=== PATIENT | female | born 1940 | race Caucasian/White ===

== ENCOUNTER 2019-08-12 09:47 | Emergency (ER) | payer MEDICARE ==
[2019-08-12] MEDS ORDERED: BISACODYL 10 MG SUPP.RECT RC ONE ×3 (10:23→13:11)
[2019-08-12] MEDS ORDERED: SODIUM CHLORIDE 0.9% 1000ML 1,000 ML IV ONE (10:24)
[2019-08-12 10:31] LABS: BASOPHILS % (AUTO) 0.7 % (0.0-5.0); EOSINOPHILS % (AUTO) 1.2 % (0.0-8.0); HEMATOCRIT 30.3 % (36-48); LYMPHOCYTES % (AUTO) 8.2 % (21.0-51.0); MEAN CORPUSCULAR HEMOGLOBIN 31.1 pg (27.0-33.0); MEAN CORPUSCULAR HGB CONC 32.7 g/dL (32.0-36.0); MEAN CORPUSCULAR VOLUME 95.3 fL (79-99); MONOCYTES % (AUTO) 7.9 % (3.0-13.0); NEUTROPHILS % (AUTO) 81.5 % (40.0-77.0); PLATELET COUNT (AUTO) 381 K/uL (130-400); RED BLOOD CELL COUNT(AUTO) 3.18 MIL/uL (4.00-5.50); RED CELL DISTRIBUTION WIDTH 13.2 % (11.0-15.5); WHITE BLOOD COUNT (AUTO) 7.3 K/uL (4.8-10.8)
[2019-08-12 10:42] LABS: CREATININE 0.7 mg/dL (0.5-1.5); POTASSIUM 3.2 mmol/L (3.5-5.1)
[2019-08-12 10:46] LABS: ALBUMIN 3.2 g/dL (3.5-5.0); BILIRUBIN,TOTAL 0.5 mg/dL (0.2-1.0); TOTAL PROTEIN, SERUM 6.8 g/dL (6.0-8.3)
== END 2019-08-12 15:05 | disposition home or self-care (01) ==
LOC: EDH 09:47
DX: K59.00 Constipation, unspecified (principal); J45.909 Unspecified asthma, uncomplicated; I10 Essential (primary) hypertension; Z88.6 Allergy status to analgesic agent; Z90.710 Acquired absence of both cervix and uterus; Z98.890 Other specified postprocedural states
CPT/HCPCS: 36415; 74018; 80053; 82150; 83690; 85025; 99284; J7030

== ENCOUNTER → 2024-05-13 | Outpatient (CLI) | payer MEDICARE ==
--- NOTE | 2024-05-13 20:45 | HMCSR ---
APPROVED REPORT EXAM: Two-dimensional and M-mode echocardiogram with Doppler and color Doppler. 2D Dimensions RVDd3.9 cmLVEF(%)61.4 (>50%)LVED Vol(simp.)68.6 mL IVSd0.7 (0.7-1.1cm)FS(%)33 %LVES Vol(simp.)30.2 mL LVDd4.0 (3.8-5.6cm)LA (2D)3.9 (1.6-4.0cm)LVEF(%, simp.)56 % PWd0.6 (0.7-1.1cm)Ao Root(2D)2.9 (2.0-3.7cm)LA ESV INDEX (4CH)41.00 mL/m2 IVSs0.9 cmLVOT diam1.6 (1.8-2.4cm)LA ESV INDEX (2CH)32.50 mL/m2 LVDs2.7 (2.5-4.0cm)LA ESV INDEX (BP)39.70 mL/m2 PWs1.2 cm M-Mode Dimensions EPSS0.5 cm LA (MM)3.8 (1.6-4.0cm) Ao Root(MM)2.5 (2.0-3.7cm) Aortic Valve AoV VTI0.4 mAo Mean GR5.0 mmHgLVOT VTI0.21 m RONAL (VMAX)1.2 cm2Al P1/2T550 msAVA (VTI) 1.2 cm2 Mitral Valve MV E Vmax98.0 cm/sDECEL Ikwz253 ms MV A Vmax28.1 cm/sP 1/2 T67 ms E/A ratio3.5MVA (PHT)3.3 cm2 MR Max PG50 mmHg TDI E/E' Ghkzsk60.2E/E' Xkiwcyz76.4 Medial E' Peak V5.10 cm/sLateral E' Peak V9.40 cm/s Tricuspid Valve TR Vmax3.1 m/s TR Peak GR37.6 mmHg Left Ventricle The left ventricle is normal size. There is normal LV segmental wall motion. There is normal left kenton tricular wall thickness. LVEF is 55%. Stage III diastolic dysfunction. Right Ventricle The right ventricle is normal size. The right ventricular systolic function is normal. Atria The left atrium size is mildly dilated. The right atrium size is normal. Aortic Valve The aortic valve is normal in structure. Mild aortic regurgitation. There is no aortic valvular steno sis. Mitral Valve The mitral valve is normal in structure. There is trace mitral regurgitation. There is no mitral valv e stenosis. Tricuspid Valve The tricuspid valve is normal in structure. There is moderate tricuspid valve regurgitation noted. Mi ld Pulmonary Hypertension. Pulmonic Valve The pulmonary valve is normal in structure. There is mild pulmonic valvular regurgitation. Great Vessels The aortic root is normal in size. The IVC is normal in size and collapses <50% with inspiration. Pericardium There is no pericardial effusion. Pericardium is thickened. Conclusion LVEF is 55%. Stage III diastolic dysfunction. The left atrium size is mildly dilated. Mild aortic regurgitation. There is trace mitral regurgitation. Mild Pulmonary Hypertension. There is no pericardial effusion. Pericardium is thickened.
== END | disposition home or self-care (01) ==
LOC: RAH 13:50
PROVIDERS: ATTEND Internal Medicine Cardiovascular Disease
DX: I08.8 Other rheumatic multiple valve diseases (principal); I11.9 Hypertensive heart disease without heart failure; I27.20 Pulmonary hypertension, unspecified
CPT/HCPCS: 93306

== ENCOUNTER 2024-07-19 13:41 | Inpatient (IN) | payer MEDICARE ==
[~2024-07-19] VITALS: Ht 160 cm; Wt 62.1 kg
[2024-07-19 14:20] LABS: BASOPHILS # (AUTO) 0.06 K/uL (0.00-0.20); BASOPHILS % (AUTO) 1.1 % (0.0-5.0); EOSINOPHILS # (AUTO) 0.21 K/uL (0.00-0.70); EOSINOPHILS % (AUTO) 3.8 % (0.0-8.0); HEMATOCRIT 42.5 % (36-48); IMMATURE GRANULOCYTE ABSOLUTE 0.01 K/uL (0-1); LYMPHOCYTES # (AUTO) 1.2 K/uL (1.0-4.8); LYMPHOCYTES % (AUTO) 21.2 % (21.0-51.0); MEAN CORPUSCULAR HEMOGLOBIN 31.4 pg (27.0-33.0); MEAN CORPUSCULAR HGB CONC 32.9 g/dL (32.0-36.0); MEAN CORPUSCULAR VOLUME 95.3 fL (79-99); MONOCYTES # (AUTO) 0.5 K/uL (0.1-1.0); MONOCYTES % (AUTO) 8.6 % (3.0-13.0); NEUTROPHILS # (AUTO) 3.6 K/uL (1.8-7.7); NEUTROPHILS % (AUTO) 65.1 % (40.0-77.0); PLATELET COUNT (AUTO) 190 K/uL (130-400); RED BLOOD CELL COUNT(AUTO) 4.46 MIL/uL (4.00-5.50); RED CELL DISTRIBUTION WIDTH 12.9 % (11.0-15.5); WHITE BLOOD COUNT (AUTO) 5.6 K/uL (4.8-10.8)
[2024-07-19 14:28] LABS: CREATININE 0.7 mg/dL (0.5-1.0); POTASSIUM 3.4 mmol/L (3.5-5.1)
--- NOTE | 2024-07-19 15:05 | HMCIMG ---
CHEST 1VW HISTORY: Weakness COMPARISON: None FINDINGS: A frontal projection of the chest was obtained. Prominent interstitial markings are seen with possible superimposed infiltrates. The heart is borderline enlarged. Degenerative changes are seen. No evidence of aortic calcification is seen. IMPRESSION: 1. Prominent interstitial markings are seen with possible superimposed infiltrates.
[2024-07-19] MEDS: hydrALAZine 20MG/ML VIAL IV ONE (15:54)
--- NOTE | 2024-07-19 16:13 | HMCIMG ---
CT HEAD/BRAIN W/O CONTRAST HISTORY: Headaches COMPARISON: None TECHNIQUE: Multiple sequential axial images of the head were obtained from the base of the skull through vertex. Patient was not given contrast through intravenous route. FINDINGS: The ventricles and extraventricular CSF spaces are dilated consistent with cerebral atrophy. Nonspecific white matter changes seen. There is no midline shift, mass effect or herniation. No acute intracranial bleed is seen. Visualized portion of the paranasal sinuses are grossly within normal limits. IMPRESSION: 1. No acute intracranial bleed is seen. 2. Atrophy with white matter changes. CT was performed with one or more following dose reduction techniques: automated exposure control, adjustment of the mA and kv according to patient's size, or use of a iterative reconstruction technique.
--- NOTE | 2024-07-19 17:10 | NUR ---
[facility] WAS CALLED AT THIS TIME FOR TRANSPORT
--- NOTE | 2024-07-19 18:12 | ERN ---
General Chief Complaint: Hypertension Stated Complaint: HEADACHE, HIGH BP, BLURRY VISION Time Seen by MD: 13:41 History of Present Illness Initial Comments 83-year-old female presents for deviating his episode, headache, and I made a special elevated blood pressure. Patient reports that this morning she woke up and she felt bad although she could not go words to her. She reports she had possibly some brief blurry vision. She reports that she had a bit of a headache. She feels dizzy. She reports that sugar blood pressure at home and it was elevated. She was never had this before. Denies any falls. Denies any chest pain shortness of breath. Allergies: Coded Allergies: codeine (Unverified Allergy, Unknown, 07/19/24) Past Medical History Past Medical History: A-Fib, Asthma, Heart Disease Past Surgical History: Appendectomy, Hysterectomy Surgical History Other: KNEE ROS Dictation CONSTITUTIONAL: No chills, no fever, no weakness, no diaphoresis, no malaise. HEAD/FACE: No signs of trauma. EENT: No eye pain, no blurred vision, no tearing, no double vision, no ear pain, no ear discharge, no nose pain, no nasal congestion, no throat pain, no throat swelling, no mouth pain. RESPIRATORY: No cough, no orthopnea, no SOB, no stridor, no wheezing. CARDIOVASCULAR: No chest pain, no edema, no palpitations, no syncope. GASTROINTESTINAL/ABDOMINAL: No abdominal pain, no constipation, no diarrhea, no nausea, no vomiting. GENITOURINARY: No abnormal discharge, no dysuria, no frequent urination, no hematuria. No complaints of pain in the genitals. MUSCULOSKELETAL: No back pain, no gout, no joint pain, no joint swelling, no muscle pain, no muscle stiffness, no neck pain. INTEGUMENTARY: No change in color, no change in hair/nails, no dryness, no lesion, no lumps, no rash. NEUROLOGICAL/PSYCH: Headache and dizziness HEMATOLOGIC/LYMPHATIC: Not anemic, no history of blood clots, no apparent bleeding, no bruising, glands not swollen. All Systems Negative, Except as Noted. Physical Exam Physical Exam Dictation VITAL SIGNS: Reviewed. GENERAL APPEARANCE: Alert, oriented x3, no acute distress HEAD AND FACE: Non-traumatic. EYES: PERRL, pink conjunctivas, eyelid no trauma, anterior chamber clear. EARS: Pinnas intact and no signs of trauma or erythema. Ear canals clear and no discharge. TMs no erythema. NOSE: No discharge, no bleeding. OROPHARYNX: Mouth normal, teeth no caries, tongue pink. Pharynx clear, no erythema. Tonsils no exudates, no abscesses noted. Mucous membrane moist. NECK: Supple, non-tender, no thyromegaly, no masses, no JVD, no bruits. BREAST: Deferred. CHEST: No tenderness, no crepitus, no paradoxical movement, no retractions. LUNGS: Clear, well-ventilated, symmetric, no rales, no wheezing, no rhonchi, no stridor, good breath sounds bilaterally. HEART: Regular rate, regular rhythm, no murmur, no gallops. VASCULAR: No peripheral edema. ABDOMEN: Soft, positive bowel sounds, nondistended, no guarding, nontender, no rebound, no masses no hepatomegaly, no splenomegaly, no Ricks's sign, no hernias. RECTAL: Deferred. GENITAL: Deferred. NEUROLOGICAL: Normal speech, gross motor function intact, gross sensory function intact. MUSCULOSKELETAL: Neck nontender, full range of motion, back nontender, full range of motion. EXTREMITIES: Nontender, full range of motion. SKIN: Color pink, dry, no turgor, no rash, no lacerations, no abrasions, no contusions. LYMPHATICS: Deferred. Results Laboratory and Microbiology Lab and Micro Result Laboratory Tests Test 07/19/24 14:05 White Blood Count 5.6 K/uL (4.8-10.8) Red Blood Count 4.46 MIL/uL (4.00-5.50) Hemoglobin 14.0 g/dL (12.0-16.0) Hematocrit 42.5 % (36-48) Mean Corpuscular Volume 95.3 fL (79-99) Mean Corpuscular Hemoglobin 31.4 pg (27.0-33.0) Mean Corpuscular Hemoglobin Concent 32.9 g/dL (32.0-36.0) Red Cell Distribution Width 12.9 % (11.0-15.5) Platelet Count 190 K/uL (130-400) Mean Platelet Volume 10.9 fL (7.5-10.5) H Immature Granulocyte % (Auto) 0.2 % (0-1) Neutrophils (%) (Auto) 65.1 % (40.0-77.0) Lymphocytes (%) (Auto) 21.2 % (21.0-51.0) Monocytes (%) (Auto) 8.6 % (3.0-13.0) Eosinophils (%) (Auto) 3.8 % (0.0-8.0) Basophils (%) (Auto) 1.1 % (0.0-5.0) Neutrophils # (Auto) 3.6 K/uL (1.8-7.7) Lymphocytes # (Auto) 1.2 K/uL (1.0-4.8) Monocytes # (Auto) 0.5 K/uL (0.1-1.0) Eosinophils # (Auto) 0.21 K/uL (0.00-0.70) Basophils # (Auto) 0.06 K/uL (0.00-0.20) Absolute Immature Granulocyte (auto 0.01 K/uL (0-1) Nucleated Red Blood Cells 0.0 % (0.0-0.19) Sodium Level 136 mmol/L (136-145) Potassium Level 3.4 mmol/L (3.5-5.1) L Chloride Level 97 mmol/L (101-111) L Carbon Dioxide Level 38 mmol/L (21-32) H Blood Urea Nitrogen 13 mg/dL (7-18) Creatinine 0.7 mg/dL (0.5-1.0) Glomerular Filtration Rate Calc 85 mL/min (>90) Random Glucose 93 mg/dL (70-105) Total Calcium 10.2 mg/dL (8.5-10.1) H Troponin I High Sensitivity 13 ng/L (4-50) MDM CC: Headache, elevated blood pressure, dizziness Historian: Patient Comorbidities: Advanced age, AFib, heart disease, asthma, hypertension Limitations by social determinants of health: None Vital signs: Initially 194/92, otherwise vital signs stable remained stable in the ER. Differential diagnosis: Stroke, hypertension urgency, ACS, trauma, or brain bleed, other than edit EKG: atrial fibrillation, rate of 58, LBBB: Left axis deviation, good R-wave progression. No STEMI. Independently interpreted by me. Labs (independently ordered and interpreted by me ): CBC is normal. BMP shows mildly elevated carbon dioxide otherwise unremarkable. Troponin is normal. Mentally ordered and interpreted by me): No acute bleeding. CXR ( independently interpreted by me ): No cardiomegaly pleural effusions or focal infiltrates. Treatment in ED: 20 mg IV hydralazine Reassessment: NIHSS of 0 cranial nerves are intact, blood pressure is improved 140/90, but patient is still feels dizziness and "bad". This point in time it is unclear what is causing your symptoms, we will admit for observation for possible hypertensive urgency. Consultation: Hospitalist for admission ED Course Orders Procedure Category Date Status Time 12 Lead Ekg Tracing- EKG 07/19/24 Logged Technical 13:56 Chest 1vw RAD 07/19/24 Resulted 13:56 Cbc With Differential LAB 07/19/24 Complete 13:56 Basic Metabolic Panel LAB 07/19/24 Complete 13:56 Troponin I High LAB 07/19/24 Complete Sensitivity 13:56 Urinalysis Profile LAB 07/19/24 Logged 13:56 Hydralazine 20mg Inj PHA 07/19/24 Complete (Apresoline 20mg In 15:30 Ct Head/Brain W/O CT 07/19/24 Resulted Contrast 15:15 12 Lead Ekg Tracing- EKG 07/19/24 Logged Technical 15:15 Current Medications Medications (Trade) Dose Ordered Sig/Jane Route PRN Reason Start Time Stop Time Status Last Admin Dose Admin Hydralazine HCl (APRESOLine 20MG INJ) 20 mg ONCE ONCE IV 07/19/24 15:30 07/19/24 15:31 DC 07/19/24 15:54 Vital Signs Date Time Temp Pulse Resp B/P (MAP) Pulse Ox O2 Delivery O2 Flow Rate FiO2 07/19/24 17:55 98.4 68 18 128/63 99 Room Air* 0 07/19/24 16:58 98.4 83 18 135/59 99 Room Air* 0 07/19/24 16:32 98.4 88 18 151/87 99 Room Air* 0 07/19/24 16:01 98.4 57 18 192/76 99 Room Air* 0 07/19/24 15:27 98.4 57 18 159/73 99 Room Air* 0 07/19/24 14:57 57 18 182/82 95 Room Air* 0 07/19/24 13:51 98.4 62 16 194/92 99 Room Air 0 DX & DISP Disposition: Inpatient Departure Impression: Primary Impression: Hypertensive urgency Additional Impression: Atrial fibrillation Condition: Stable Referrals: ANI GONZALEZ (PCP) ANGELO DORSEY DO Jul 19, 2024 18:12
--- NOTE | 2024-07-19 19:08 | HP ---
History of Present Illness Reason for Visit: headache History of Present Illness Ms. Fenton is an 83-year-old female that was seen and examined today on 07/19/2024. Patient is a good historian of personal health Patient states that she came to the emergency department with a chief complaint of headache. Onset was today at 1:00 p.m.. Location is to head. Duration is on and off. Episodes lasted about 1 hour. Character is described as, "like if my eyes get buggy."Patient reports a similar episode last year that required Cardiology evaluation but she can not recall what the cause was. There was no alleviating factors. Symptoms seemingly alleviated on their own. There was no associated chest pain or shortness and breath. Today in the emergency department CBC unremarkable, potassium 3.4, no urinalysis has been collected or sent to lab. Chest x-ray shows prominent interstitial markings with possible superimposed infiltrates. CT of the head is unremarkable other than atrophy with white matter changes. Patient had a episode of elevated blood pressure in the emergency department systolic 100 and 80s mm of mercury which responded well to a dose of hydralazine. Emergency room physician recommended that patient be admitted with a diagnosis of hypertensive urgency. Past Medical History ADDITIONAL PAST MEDICAL HISTORY: [Hypertension, asthma] SOCIAL HISTORY: [Negative for smoking. Patient drinks alcohol about once a month usually one beer. Patient denies drug use. Patient lives with the Rhea Puente. Patient has good access to health care through her insurance. Patient denies difficulty paying her bills. 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 Dyspnea, Edema, Lt Headedness, Other Gastrointestinal: No: Nausea, Vomiting, Abdominal Pain, Diarrhea, Constipation, Melena, Hematochezia, Other Genitourinary: No Dysuria, No Frequency, No Incontinence, No Hematuria, No Retention, No Other Musculoskeletal: No: other, neck pain, shoulder pain, arm pain, back pain, hand pain, leg pain, foot pain Skin: No Urticaria, No Rash, No Other Neurological: Other (Positive cephalgia); No: Weakness, Numbness, Incoordination, Change in speech, Confusion, Seizures Allergies: Coded Allergies: codeine (Unverified Allergy, Unknown, 07/19/24) Exam Vital Signs Vital Signs Date Time Temp Pulse Resp B/P (MAP) Pulse Ox O2 Delivery O2 Flow Rate FiO2 07/19/24 17:55 98.4 68 18 128/63 99 Room Air* 0 21 General Appearance: Alert, Oriented X3, Cooperative, No acute distress HEENT: Atraumatic, EOMI Respiratory: Clear to auscultation, Normal air movement, NL respiratory effort Cardiovascular: Regular rate, Regular rhythm, Normal S1, Normal S2 Abdominal: Normal bowel sounds, Soft, No tenderness Extremities: No edema Skin: No significant lesion Neuro: Normal speech, Strength at 5/5 X4 ext, Sensation intact, Cranial nerves 3-12 NL Psych/Mental Status: Mental status NL, Mood NL, Thoughts/Content NL Assessment/Plan ASSESSMENT: [ Hypertensive urgency, POA Hypokalemia, POA Suspected pneumonia, POA Asthma] PLAN: [ Admit patient to medical floor as inpatient status. Place patient on telemetry monitoring. Hypertensive urgency: Monitor patient's vital signs. Hydralazine 10 mg IV every 4 hours for systolic blood pressure greater than 160 mmHg Consider resuming home medications once they are reconciled Hypokalemia: Replace potassium per hospital protocol. Suspected pneumonia: Check respiratory culture, follow up with the results. Start empiric antibiotic therapy with doxycycline and Rocephin. Supportive treatment with guaifenesin, Tylenol DuoNebs every 6 hours Supplemental oxygen to maintain O2 saturation greater 92%. GI prophylaxis, famotidine DVT prophylaxis, Lovenox ADVANCED CARE PLANNING 1. Which of the following were discussed? Hospice Care - Yes Therapeutic options - Yes Advance Directives - Yes- patient states that she does not have any advance directives in place at this time however her can make decisions for her if she becomes unable. Other discussions - patient wishes to remain a full code at this time 2. Discussed with who? Patient 3. Voluntary nature of this service was explained to the patient? Yes 4. Amount of time spent - ___ 16 minutes ____ 5. Reviewed by Physician? (if this service was performed by NPP) Yes This document was generated in part using voice recognition software, occasional wrong word or sound alike substitutions may have occurred due to the inherent limitations of voice recognition software. Read the chart carefully and recognize using context, where the substitutions have occurred. Although every effort was made to edit the content, bakery demonstrator and typing errors may occur ATTESTATION BY PHYSICIAN I have seen and examined the patient. I reviewed the documentation, medical decision making, and treatment plan as noted by the mid-level provider above. I agree with the findings and plan of care. RAMBO DIXON [facility] Jul 19, 2024 19:08
[2024-07-19 19:20] LABS: APPEARANCE,URINE CLEAR (CLEAR); BILIRUBIN,URINE NEGATIVE (NEGATIVE); COLOR,URINE COLORLESS (YELLOW); GLUCOSE, URINE (UA) NEGATIVE (NEGATIVE); KETONES,URINE NEGATIVE (NEGATIVE); LEUKOCYTE ESTERASE ,URINE 250 Leu/uL (NEGATIVE); NITRATE,URINE NEGATIVE (NEGATIVE); OCCULT BLOOD,URINE NEGATIVE (NEGATIVE); PROTEIN,URINE NEGATIVE (NEGATIVE); UROBILINOGEN,URINE 0.2 mg/dL (0.2-1.0)
[2024-07-19 19:24] LABS: ADD UA MICROSCOPIC YES
[2024-07-19 19:28] LABS: BACTERIA,URINE RARE /HPF (None Seen); RBC,URINE 0-1 /HPF (0-1); SQUAMOUS EPITHELIAL CELL,UR RARE /HPF (0-2)
[2024-07-19] MEDS ORDERED: MAGNESIUM 2GM PREMIX 50ML 50 ML IV PRN (19:30)
[2024-07-19] MEDS ORDERED: PoTASSium chloRIDE 20MEQ/100ML 100 ML IV PRN (19:30)
[2024-07-19] MEDS ORDERED: hydrALAZine 20MG/ML VIAL IV PRN (19:30)
[2024-07-19] MEDS ORDERED: guaiFENesin SUGAR-FREE 100 MG/5 ML UDCUP PO PRN (19:30)
[2024-07-19] MEDS ORDERED: ondanSETRON 4MG INJ IV PRN (19:30)
[2024-07-19 19:59] LABS: SARS-CoV-2, RNA, NAAT NEGATIVE SARS CoV-2 (NEGATIVE)
[2024-07-19 20:03] LABS: INFLUENZA TYPE A Negative For Type A (NEGATIVE); INFLUENZA TYPE B Negative For Type B (NEGATIVE)
[2024-07-19 20:10] VITALS: PULSE 70; RESP 18; O2SAT 97
[2024-07-19] MEDS: cefTRIAXone 1G VIAL IVPB SCH (20:36)
[2024-07-19] MEDS: DOXYCYCLINE 100MG+NS 250ML 250 ML IV SCH (20:36)
[2024-07-19] MEDS: acetaMINOPHEN 325 MG TAB PO PRN (23:01)
[2024-07-19] MEDS: IpraTROPium/alBUTERol SULFATE 3 ML SOLUTION IH SCH (23:19)
[2024-07-19] MEDS: SODIUM CHLORIDE 3% FOR INHALATION 4 ML/AMP VIAL.NEB IH ONE (23:19)
[2024-07-19 23:21] VITALS: PULSE 62; RESP 17
[2024-07-19] MEDS: IpraTROPium/alBUTERol SULFATE 3 ML SOLUTION IH ONE (23:21)
--- NOTE | 2024-07-20 06:35 | EKG ---
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
--- NOTE | 2024-07-20 06:35 | EKG ---
[facility] Test Date: 2024-07-19 Test Time: 17:00:18 Pat Name: DUANE MEJIA Department: ED[facility]IP Room: 302 Gender: F Health Care Coordinator: [id number] : 1940 Requested By: ANGELO DORSEY Order Number: [id number] Reading MD: Reginald Qiu Measurements Intervals [place] Rate: 79 P: 58 AL: 149 QRS: 56 QRSD: 86 T: 37 QT: 412 QTc: 473 Interpretive Statements Sinus rhythm Abnormal T, consider ischemia, anterior leads Compared to ECG 07/19/2024 13:56:44 T-wave abnormality now present Possible ischemia now present Atrial fibrillation no longer present Intraventricular conduction delay no longer present Left ventricular hypertrophy no longer present Early repolarization no longer present Electronically Signed On 07-21-2024 12:44:10 INSPECTION CLERK by Reginald Qiu Please click the below link to view image of tracing.
[2024-07-20 07:09] VITALS: PULSE 77; RESP 18
[2024-07-20 07:41] LABS: BASOPHILS # (AUTO) 0.05 K/uL (0.00-0.20); BASOPHILS % (AUTO) 0.9 % (0.0-5.0); EOSINOPHILS # (AUTO) 0.15 K/uL (0.00-0.70); EOSINOPHILS % (AUTO) 2.8 % (0.0-8.0); HEMATOCRIT 40.8 % (36-48); IMMATURE GRANULOCYTE ABSOLUTE 0.01 K/uL (0-1); LYMPHOCYTES # (AUTO) 1.1 K/uL (1.0-4.8); LYMPHOCYTES % (AUTO) 20.3 % (21.0-51.0); MEAN CORPUSCULAR HGB CONC 32.8 g/dL (32.0-36.0); MEAN CORPUSCULAR VOLUME 94.4 fL (79-99); MONOCYTES # (AUTO) 0.5 K/uL (0.1-1.0); MONOCYTES % (AUTO) 9.2 % (3.0-13.0); NEUTROPHILS # (AUTO) 3.5 K/uL (1.8-7.7); NEUTROPHILS % (AUTO) 66.6 % (40.0-77.0); PLATELET COUNT (AUTO) 178 K/uL (130-400); RED BLOOD CELL COUNT(AUTO) 4.32 MIL/uL (4.00-5.50); RED CELL DISTRIBUTION WIDTH 13.2 % (11.0-15.5); WHITE BLOOD COUNT (AUTO) 5.3 K/uL (4.8-10.8)
[2024-07-20] MEDS: SODIUM CHLORIDE 3% FOR INHALATION 4 ML/AMP VIAL.NEB IH ONE (07:43)
--- NOTE | 2024-07-20 07:45 | NUR ---
ASSESSMENT: PT FOUND AWAKE AND ALERT. NO ACUTE DISTRESS NOTED NOR VERBALIZED BY PT. HEAD OF STRETCHER IN SEMI FOWLERS POSITION, SR UP X 1 AND BED LOW/LOCKED. CARDIO/PULMONARY: IRREGULAR CARDIAC RHYTHM AUSCULTATED APICALLY. 2+ PULSES TO BILATERAL RADIAL/DORSALIS PEDAL SITES. PT CURRENTLY DENIES CHEST PAIN. 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 NO CYANOSIS NOTED TO NAIL BEDS. LSCTA TO ALL LUCAS. DIMINISHED TO BASES BILATERALLY. CAP REFILL LESS THAN 3 SECONDS. NO USE OF ACCESSORY MUSCLES NOR STERNAL RETRACTIONS NOTED. OXYGEN SATS ON ROOM AIR 94-96%. 20G CATH TO R AC INTACT. NO S/S OF INFILTRATION. NEURO: PT A/O X 4. PT FOLLOWS BOTH SIMPLE AND COMPLEX COMMANDS. PT ASKS PERTINENT QUESTIONS ABOUT HER HEALTH. GCS 15. PT NEUROLOGICALLY INTACT AT THIS TIME. GI/: +BS X 4 QUADRANTS. ABD SOFT TO PALPATION. NO DISTENTION NOTED TO ABD NOR BLADDER. PT DENIES ANY BOWEL OR BLADDER ISSUES. MUSCULOSKELETAL: PT HAS FULL ROM OF ALL HER EXTREMITIES. DENIES ANY ACHES OR PAINS AT THIS TIME. PT SKIN INTACT, WARM TO TOUCH. NO SKIN BREAKDOWN NOTED NOR VERBALIZED BY PT.
[2024-07-20 08:00] LABS: CREATININE 0.7 mg/dL (0.5-1.0); MAGNESIUM 1.6 mg/dL (1.80-2.40); PHOSPHORUS 3.8 mg/dL (2.5-4.9); POTASSIUM 3.5 mmol/L (3.5-5.1)
[2024-07-20] MEDS: ENOXAPARIN SODIUM 40 MG/0.4 ML SYRINGE SQ SCH (09:57)
[2024-07-20] MEDS: FAMOTIDINE 20MG TAB PO SCH (09:57)
[2024-07-20] MEDS ORDERED: MONT-47 PO (10:22)
[2024-07-20] MEDS ORDERED: APIX5TAB PO (10:22)
[2024-07-20] MEDS ORDERED: CLON0.5T23 PO (10:22)
[2024-07-20] MEDS ORDERED: HYDR12.54 PO (10:22)
[2024-07-20] MEDS ORDERED: LOSA50TA64 PO (10:22)
--- NOTE | 2024-07-20 10:22 | NUR ---
MEDICATION RECONCILIATION: COMPLETE
--- NOTE | 2024-07-20 10:24 | NUR ---
HOSPITALIST CURRENTLY AT BEDSIDE W/PT.
[2024-07-20 11:07] VITALS: PULSE 75; RESP 18
--- NOTE | 2024-07-20 14:41 | NUR ---
PT OOB TO USE THE TOILET W/A STEADY GIAT. PT ALSO CHANGED INTO A HOSPITAL GOWN
--- NOTE | 2024-07-20 16:19 | NUR ---
SLEEP STUDY NOTE: ATTEMPTED TO CALL SLEEP STUDY BUT NO ANSWER AT THIS TIME.
--- NOTE | 2024-07-20 16:23 | PN ---
[facility] PROGRESS NOTE Date of Service: Jul 20, 2024 Time of Service: 16:10 SUBJECTIVE: Ms. Fenton is an 83-year-old female that was seen and examined today on 07/19/2024. Patient is a good historian of personal health Patient states that she came to the emergency department with a chief complaint of headache. Onset was today at 1:00 p.m.. Location is to head. Duration is on and off. Episodes lasted about 1 hour. Character is described as, "like if my eyes get buggy."Patient reports a similar episode last year that required Cardiology evaluation but she can not recall what the cause was. There was no alleviating factors. Symptoms seemingly alleviated on their own. There was no associated chest pain or shortness and breath. Today in the emergency department CBC unremarkable, potassium 3.4, no urinalysis has been collected or sent to lab. Chest x-ray shows prominent interstitial markings with possible superimposed infiltrates. CT of the head is unremarkable other than atrophy with white matter changes. Patient had a episode of elevated blood pressure in the emergency department systolic 100 and 80s mm of mercury which responded well to a dose of hydralazine. Emergency room physician recommended that patient be admitted with a diagnosis of hypertensive urgency 07/20/2024 - patient is seen at bedside in room ED 12 , patient feels better compared to yesterday but has mild headache which comes on and off and little visual disturbance which improved compared to yesterday. Patient's home medications for blood pressure has been resumed and will be monitored for 24 hours to see the blood pressure control. Questioned patient about any external stressors, dietary changes, nonadherence to medications and patient answered that there are no changes in her daily life, she also added that she measures her blood pressure at home in the morning and at night and it has always been in 120s and 80s. Patient's labs show WBC 5.3, hemoglobin 13.4 And chemistries show sodium 138, potassium 3.5, creatinine 0.7, BUN 11, magnesium 1.6. Patient has a symptomatic bacteriuria which do not require antibiotics. Patient is hemodynamically stable with temperature 99, pulse 75, respiratory rate 18, blood pressure 139/59, saturating at 97% on room air. Patient will be monitored closely REVIEW OF SYSTEMS CONSTITUTIONAL: Denies fevers, chills, or night sweats. No unintentional weight loss reported. NEUROLOGICAL: Denies headache, amaurosis fugax, motor weakness, sensory deficit, vertigo/spinning sensation, gait abnormalities, or tremors. ENT: No hearing loss, otalgia, otorrhea, rhinitis, rhinorrhea, hoarseness, or sore throat. CARDIOVASCULAR: Denies any exertional angina, dyspnea on exertion, orthopnea, paroxysmal nocturnal dyspnea, palpitations, life-threatening arrhythmias, claudication. PULMONARY: Denies any shortness of breath, cough, phlegm/sputum, hemoptysis, pleuritic chest pain. SLEEP: Denies morning headaches, daytime somnolence or napping. Denies d ifficulty falling asleep, staying asleep, waking from sleep. Denies knowledge of snoring. GASTROINTESTINAL: Denies any type of dysphagia to either liquids or solids. Denies nausea, vomiting, pyrosis, early satiety, abdominal pain, diarrhea, constipation, or changes in stool consistency or caliber. Denies coffee-ground emesis, hematemesis, hematochezia, or melanotic stools. GENITOURINARY: Denies frequency, urgency, nocturia, hematuria or incontinence (Storage/Irritative symptoms.) Low urinary stream, straining to void, urinary intermittency or hesitancy, splitting of the voiding stream, terminal dribbling. ENDOCRINOLOGIC: Denies polyuria, polydipsia, polyphagia or heat/cold intolerances. HEMATOLOGIC: Denies thrombophilia/previous clots, or coagulopathy/bleeding disorders. ONCOLOGIC: Denies personal history of malignancy. DERMATOLOGIC: Denies rashes or pruritus. PSYCHIATRIC: Denies any suicidal or homicidal ideation. Denies hallucinations. PHYSICAL EXAM GENERAL APPEARANCE: The patient is awake, alert, and oriented, in no acute cardiopulmonary distress. NEUROLOGICAL: Cranial nerves II-XII grossly intact. Motor is 5/5 in bilateral upper and lower extremities proximal to distal. No sensory deficits. HEENT: Face is symmetric. Pupils are equal and reactive. Extraocular movements are intact. NECK: Supple. No JVD. No thyromegaly. No submental, submandibular, pre- /postauricular, occipital or supraclavicular lymphadenopathy. CHEST: Normal chest expansion. No Telemetry. LUNGS: Absence of any rales, rhonchi or any wheezing. CARDIOVASCULAR: Regular. S1 and S2 normal. No appreciable rubs, murmurs or gallops. ABDOMEN: Soft, nontender, and nondistended. There is no rebound, voluntary guarding, or rigidity. : Deferred. No Sharp. EXTREMITIES: Non-edematous and not cyanotic. No clubbing. Good capillary refill. SKIN: No skin breakdown. Vital Signs (last 8hr) Date Time Temp Pulse Resp B/P (MAP) Pulse Ox O2 Delivery O2 Flow Rate FiO2 07/20/24 11:07 75 18 LABS: Laboratory: Test 07/20/24 07:22 07/19/24 19:25 07/19/24 19:10 07/19/24 14:05 Range/Units White Blood Count 5.3 4.8-10.8 K/uL Red Blood Count 4.32 4.00-5.50 MIL/uL Hemoglobin 13.4 12.0-16.0 g/dL Hematocrit 40.8 36-48 % Mean Corpuscular Volume 94.4 79-99 fL Mean Corpuscular Hemoglobin 31.0 27.0-33.0 pg Mean Corpuscular Hemoglobin Concent 32.8 32.0-36.0 g/dL Red Cell Distribution Width 13.2 11.0-15.5 % Platelet Count 178 130-400 K/uL Mean Platelet Volume 11.0 H 7.5-10.5 fL Immature Granulocyte % (Auto) 0.2 0-1 % Neutrophils (%) (Auto) 66.6 40.0-77.0 % Lymphocytes (%) (Auto) 20.3 L 21.0-51.0 % Monocytes (%) (Auto) 9.2 3.0-13.0 % Eosinophils (%) (Auto) 2.8 0.0-8.0 % Basophils (%) (Auto) 0.9 0.0-5.0 % Neutrophils # (Auto) 3.5 1.8-7.7 K/uL Lymphocytes # (Auto) 1.1 1.0-4.8 K/uL Monocytes # (Auto) 0.5 0.1-1.0 K/uL Eosinophils # (Auto) 0.15 0.00-0.70 K/uL Basophils # (Auto) 0.05 0.00-0.20 K/uL Absolute Immature Granulocyte (auto 0.01 0-1 K/uL Nucleated Red Blood Cells 0.0 0.0-0.19 % Sodium Level 138 136-145 mmol/L Potassium Level 3.5 3.5-5.1 mmol/L Chloride Level 100 L 101-111 mmol/L Carbon Dioxide Level 33 H 21-32 mmol/L Blood Urea Nitrogen 11 7-18 mg/dL Creatinine 0.7 0.5-1.0 mg/dL Glomerular Filtration Rate Calc 85 >90 mL/min Random Glucose 91 70-105 mg/dL Total Calcium 9.5 8.5-10.1 mg/dL Phosphorus Level 3.8 2.5-4.9 mg/dL Magnesium Level 1.60 L 1.80-2.40 mg/dL Influenza Type A Antigen Negative For Type A NEGATIVE Influenza Type B Antigen Negative For Type B NEGATIVE SARS-CoV-2, RNA, NAAT NEGATIVE SARS CoV-2 NEGATIVE Urine Color COLORLESS YELLOW Urine Appearance CLEAR CLEAR Urine pH 8.0 5.0-8.0 Urine Specific [place] 1.005 1.001-1.031 Urine Protein NEGATIVE NEGATIVE mg/dL Urine Glucose (UA) NEGATIVE NEGATIVE mg/dL Urine Ketones NEGATIVE NEGATIVE mg/dL Urine Occult Blood NEGATIVE NEGATIVE Urine Nitrate NEGATIVE NEGATIVE Urine Bilirubin NEGATIVE NEGATIVE mg/dL Urine Urobilinogen 0.2 0.2-1.0 mg/dL Urine Leukocyte Esterase 250 H NEGATIVE Tuan/uL Urine RBC 0-1 0-1 /HPF Urine WBC 11-25 H 0-1 /HPF Urine Squamous Epithelial Cells RARE 0-2 /HPF Urine Bacteria RARE None Seen /HPF Troponin I High Sensitivity 13 4-50 ng/L Current Medications Medications (Trade) Dose Ordered Sig/Jane Route PRN Reason Start Time Stop Time Status Last Admin Dose Admin Acetaminophen (TYLenol 325MG TAB) 650 mg Q6H PRN PO TEMPERATURE GREATER THAN 101.5 07/19/24 19:30 08/18/24 19:29 07/19/24 23:01 650 MG Albuterol (DUOneb) 1 UDVIAL U4HERBE IH 07/20/24 00:00 08/19/24 00:00 07/20/24 11:07 1 UDVIAL Apixaban (EliquIS) 5 mg BID PO 07/20/24 21:00 08/19/24 20:59 Ceftriaxone Sodium (ROCEphine 1G INJ) 1 gm Q24H IVPB 07/19/24 19:30 07/29/24 19:29 07/19/24 20:36 1 GM Doxycycline Hyclate 250 ml @ 125 mls/hr Q12H IV 07/19/24 19:30 07/29/24 19:29 07/20/24 09:57 125 MLS/HR Enoxaparin Sodium (Lovenox) 40 mg DAILY SQ 07/20/24 09:00 07/20/24 11:57 DC 07/20/24 09:57 40 MG Famotidine (Pepcid 20mg Tab) 20 mg DAILY PO 07/20/24 09:00 08/19/24 08:59 07/20/24 09:57 20 MG Guaifenesin (RobiTUSSin SUGAR-FREE 100 MG/ 5 ML UDCUP) 400 mg Q4H PRN PO cough 07/19/24 19:30 08/18/24 19:29 Hydralazine HCl (APRESOLine 20MG INJ) 10 mg Q6H PRN IV For:SBP above 160;DBP above 90 07/19/24 19:30 08/18/24 19:29 Hydrochlorothiazide (hydroCHLOROthiazide 25MG) 12.5 mg BID PO 07/20/24 21:00 08/19/24 20:59 Losartan Potassium (CozAAR 50 mg TAB) 50 mg BID PO 07/20/24 21:00 08/19/24 20:59 Magnesium Sulfate 50 ml @ 0 mls/hr PROTOCOL PRN IV h 07/19/24 19:30 08/18/24 19:29 Ondansetron HCl (zoFRAN 4MG INJ) 4 mg Q6H PRN IV NAUSEA/VOMITING 07/19/24 19:30 08/18/24 19:29 Potassium Chloride 100 ml @ 100 mls/hr AD PRN IV POTASSIUM PROTOCOL 07/19/24 19:30 08/18/24 19:29 Potassium Chloride (K-Dur/Klor-Con 20meq) 20 meq AD PRN PO POTASSIUM PROTOCOL 07/19/24 19:30 08/18/24 19:29 Potassium Chloride (KCl 10% Elixir 20meq/15ml) 20 meq AD PRN PO POTASSIUM PROTOCOL 07/19/24 19:30 08/18/24 19:29 DIAGNOSTICS / RADIOLOGY: PATIENT: DUANE FENTON MR#: [id number] : 1940 SEX: F AGE: 83 LOCATION: [facility] ORDER 1357 STATUS: REG ER REPORT#: [id number] SERVICE 135 REASON: WEAKNESS ORDERING PHYSICIAN: ANGELO DORSEY DO PROCEDURE: CXR1VW - CHEST 1VW CHEST 1VW HISTORY: Weakness COMPARISON: None FINDINGS: A frontal projection of the chest was obtained. Prominent interstitial markings are seen with possible superimposed infiltrates. The heart is borderline enlarged. Degenerative changes are seen. No evidence of aortic calcification is seen. IMPRESSION: 1. Prominent interstitial markings are seen with possible superimposed infiltrates. DICTATED BY: FRANK ACUÑA MD DATE: 07/19/24 150 ELECTRONICALLY SIGNED BY: FRANK ACUÑA MD DATE: 07/19/241504 PATIENT: DUANE FENTON MR#: [id number] : 1940 SEX: F AGE: 83 LOCATION: ED ORDER 1516 STATUS: REG ER REPORT#: [id number] SERVICE 151 REASON: headache ORDERING PHYSICIAN: ANGELO DORSEY DO PROCEDURE: HEAD WO - CT HEAD/BRAIN W/O CONTRAST CT HEAD/BRAIN W/O CONTRAST HISTORY: Headaches COMPARISON: None TECHNIQUE: Multiple sequential axial images of the head were obtained from the base of the skull through vertex. Patient was not given contrast through intravenous route. FINDINGS: The ventricles and extraventricular CSF spaces are dilated consistent with cerebral atrophy. Nonspecific white matter changes seen. There is no midline shift, mass effect or herniation. No acute intracranial bleed is seen. Visualized portion of the paranasal sinuses are grossly within normal limits. IMPRESSION: 1. No acute intracranial bleed is seen. 2. Atrophy with white matter changes. CT was performed with one or more following dose reduction techniques: automated exposure control, adjustment of the mA and kv according to patient's size, or use of a iterative reconstruction technique. DICTATED BY: FRANK ACUÑA MD DATE: 07/19/24 1609 ELECTRONICALLY SIGNED BY: FRANK ACUÑA MD DATE: 07/19/24 3733 ASSESSMENT: [ Hypertensive urgency, POA Hypokalemia, POA Suspected pneumonia, POA Asthma POA Atrial fibrillation POA Insomnia POA Restless legs syndrome POA Hypertension POA Asymptomatic bacteriuria POA PLAN: [ Admit patient to medical floor as inpatient status. Place patient on telemetry monitoring. Hypertensive urgency:, hypertension Monitor patient's vital signs. Hydralazine 10 mg IV every 4 hours for systolic blood pressure greater than 160 mmHg Resume home medications losartan 50 b.i.d., hydrochlorothiazide 12.5 b.i.d. Hypokalemia: Replace potassium per hospital protocol. Insomnia, restless legs syndrome Patient takes clonazepam and the medication will be continued Atrial fibrillation Eliquis5 mg b.i.d. GI prophylaxis, famotidine DVT prophylaxis, Elliquis ATTESTATION BY PHYSICIAN I have seen and examined the patient. I reviewed the documentation, medical decision making, and treatment plan as noted by the resident provider above. I agree with the findings and plan of care. Jr Connor MD, KEERTI K MD Jul 20, 2024 16:23
--- NOTE | 2024-07-20 16:29 | NUR ---
DCP: HOME Pt and her Byrl [phone] are [place] and have a park model they stay in while in the [place]. Pt voiced independence with her ADLS, drives, uses no DM or HH services. PCP is Theresa Lazaro and uses [facility] for rx. Pt denies dc needs and states she will return home at co Addendum: 07/20/24 at 1632 by JOSÉ ANTONIO MENDEZ Amended: Links added.
[2024-07-20 18:57] VITALS: PULSE 67; RESP 18
[2024-07-20 18:58] VITALS: PULSE 67; RESP 18; O2SAT 98
--- NOTE | 2024-07-20 19:23 | NUR ---
REPORT ENDORSED TO LUCIE GRIER
[2024-07-20] MEDS: hydroCHLOROthiazide 25 MG TABLET PO SCH (21:12)
[2024-07-20] MEDS: APIXaban 5 MG TABLET PO SCH (21:12)
[2024-07-20] MEDS: LoSARTan 50 MG TABLET PO SCH (21:12)
[2024-07-20] MEDS: clonazePAM 0.5 MG TABLET PO SCH (21:12)
--- NOTE | 2024-07-20 22:59 | NUR ---
REPORT GIVEN TO GENEVA GRIER
[2024-07-20] MEDS: PoTASSium chl 10% ELIXIR 20MEQ 20 MEQ/15 ML UDCUP PO PRN (23:02)
[2024-07-20 23:10] VITALS: BP 142/74; PULSE 76; RESP 20; TEMP 97.5
--- NOTE | 2024-07-20 23:10 | NUR ---
PT BROUGHT TO UNIT VIA STRETCHER FROM ER ESCORTED BY HOSPITAL STAFF, PATIENT AAOX3. PT COOPERATIVE WITH ASSESSMENT, IV PATENT AND FLUSHED WELL, PATIENT VOICED NO CONCERNS AT THIS TIME.
[2024-07-20 23:12] VITALS: O2SAT 97
[2024-07-21 04:00] VITALS: BP 153/82; PULSE 70; RESP 20; TEMP 98.6
[2024-07-21 04:26] LABS: BASOPHILS # (AUTO) 0.07 K/uL (0.00-0.20); BASOPHILS % (AUTO) 1.2 % (0.0-5.0); EOSINOPHILS # (AUTO) 0.39 K/uL (0.00-0.70); EOSINOPHILS % (AUTO) 6.4 % (0.0-8.0); HEMATOCRIT 38.7 % (36-48); IMMATURE GRANULOCYTE ABSOLUTE 0.03 K/uL (0-1); LYMPHOCYTES % (AUTO) 16.8 % (21.0-51.0); MEAN CORPUSCULAR HEMOGLOBIN 31.5 pg (27.0-33.0); MEAN CORPUSCULAR HGB CONC 33.3 g/dL (32.0-36.0); MEAN CORPUSCULAR VOLUME 94.6 fL (79-99); MONOCYTES # (AUTO) 0.6 K/uL (0.1-1.0); NEUTROPHILS % (AUTO) 65.1 % (40.0-77.0); PLATELET COUNT (AUTO) 162 K/uL (130-400); RED BLOOD CELL COUNT(AUTO) 4.09 MIL/uL (4.00-5.50); RED CELL DISTRIBUTION WIDTH 13.3 % (11.0-15.5); WHITE BLOOD COUNT (AUTO) 6.1 K/uL (4.8-10.8)
[2024-07-21 04:37] LABS: CREATININE 0.6 mg/dL (0.5-1.0); POTASSIUM 3.3 mmol/L (3.5-5.1)
[2024-07-21] MEDS: PoTASSium chloRIDE 20MEQ ER 20 MEQ ERTAB PO PRN (05:44)
[2024-07-21 06:41] VITALS: PULSE 69; RESP 18
[2024-07-21 06:42] VITALS: PULSE 69; RESP 18; O2SAT 97
[2024-07-21 08:00] VITALS: BP 131/75; PULSE 71; RESP 18; TEMP 97.8; O2SAT 96
[2024-07-21] MEDS ORDERED: MAGNESIUM 4GM PREMIX 100ML IV SCH (09:30)
[2024-07-21 11:03] VITALS: PULSE 72; RESP 18
--- NOTE | 2024-07-21 11:06 | DS ---
Discharge Summary Hospital Course Summary: Ms. Fenton is an 83-year-old female that was seen and examined today on 07/19/2024. Patient is a good historian of personal health Patient states that she came to the emergency department with a chief complaint of headache. Onset was today at 1:00 p.m.. Location is to head. Duration is on and off. Episodes lasted about 1 hour. Character is described as, "like if my eyes get buggy."Patient reports a similar episode last year that required Cardiology evaluation but she can not recall what the cause was. There was no alleviating factors. Symptoms seemingly alleviated on their own. There was no associated chest pain or shortness and breath. Today in the emergency department CBC unremarkable, potassium 3.4, no urinalysis has been collected or sent to lab. Chest x-ray shows prominent interstitial markings with possible superimposed infiltrates. CT of the head is unremarkable other than atrophy with white matter changes. Patient had a episode of elevated blood pressure in the emergency department systolic 100 and 80s mm of mercury which responded well to a dose of hydralazine. Emergency room physician recommended that patient be admitted with a diagnosis of hypertensive urgency 07/20/2024 - patient is seen at bedside in room ED 12 , patient feels better compared to yesterday but has mild headache which comes on and off and little visual disturbance which improved compared to yesterday. Patient's home medications for blood pressure has been resumed and will be monitored for 24 hours to see the blood pressure control. Questioned patient about any external stressors, dietary changes, nonadherence to medications and patient answered that there are no changes in her daily life, she also added that she measures her blood pressure at home in the morning and at night and it has always been in 120s and 80s. Patient's labs show WBC 5.3, hemoglobin 13.4 And chemistries show sodium 138, potassium 3.5, creatinine 0.7, BUN 11, magnesium 1.6. Patient has a symptomatic bacteriuria which do not require antibiotics. Patient is hemodynamically stable with temperature 99, pulse 75, respiratory rate 18, blood pressure 139/59, saturating at 97% on room air. Patient will be monitored closely 07/21/2024- patient has been seen in room 302, patient expressed that she was free of headache but still little visual disturbance kind of foggy. Explained the patient about fluctuations in the blood pressure due to stress, diet, nonadherence to medication. Patient is deemed stable for discharge and will be continued on her current home medication. Also informed the patient that if she has any symptoms similar to this, she should come back to the emergency due to risk of having a stroke at that high blood pressure. Patient is advised to follow up with primary in 1-2 weeks and Cardiology in 2-3 weeks . Procedure(s): PATIENT: DUANE FENTON MR#: [id number] : 1940 SEX: F AGE: 83 LOCATION: [facility] ORDER 1357 STATUS: REG ER REPORT#: [id number] SERVICE 135 REASON: WEAKNESS ORDERING PHYSICIAN: ANGELO DORSEY DO PROCEDURE: CXR1VW - CHEST 1VW CHEST 1VW HISTORY: Weakness COMPARISON: None FINDINGS: A frontal projection of the chest was obtained. Prominent interstitial markings are seen with possible superimposed infiltrates. The heart is borderline enlarged. Degenerative changes are seen. No evidence of aortic calcification is seen. IMPRESSION: 1. Prominent interstitial markings are seen with possible superimposed infiltrates. DICTATED BY: FRANK ACUÑA MD DATE: 07/19/24 1502 ELECTRONICALLY SIGNED BY: FRANK ACUÑA MD DATE: 07/19/24 1505 PATIENT: DUANE FENTON MR#: [id number] : 1940 SEX: F AGE: 83 LOCATION: [facility] ORDER 1516 STATUS: REG ER REPORT#: [id number] SERVICE 1515 REASON: headache ORDERING PHYSICIAN: ANGELO DORSEY DO PROCEDURE: HEAD WO - CT HEAD/BRAIN W/O CONTRAST CT HEAD/BRAIN W/O CONTRAST HISTORY: Headaches COMPARISON: None TECHNIQUE: Multiple sequential axial images of the head were obtained from the base of the skull through vertex. Patient was not given contrast through intravenous route. FINDINGS: The ventricles and extraventricular CSF spaces are dilated consistent with cerebral atrophy. Nonspecific white matter changes seen. There is no midline shift, mass effect or herniation. No acute intracranial bleed is seen. Visualized portion of the paranasal sinuses are grossly within normal limits. IMPRESSION: 1. No acute intracranial bleed is seen. 2. Atrophy with white matter changes. CT was performed with one or more following dose reduction techniques: automated exposure control, adjustment of the mA and kv according to patient's size, or use of a iterative reconstruction technique. DICTATED BY: FRANK ACUÑA MD DATE: 07/19/24 160 ELECTRONICALLY SIGNED BY: FRANK ACUÑA MD DATE: 07/19/24 1613 Assessment/Plan: ASSESSMENT: [ Hypertensive urgency, POA Hypokalemia, POA Suspected pneumonia, POA Asthma POA Atrial fibrillation POA Insomnia POA Restless legs syndrome POA Hypertension POA Asymptomatic bacteriuria POA Discharge Instructions: Take your prescribed blood pressure medications exactly as directed and do not skip any doses Do not stop or change in medications with the consulting your Dr. If your prescribed new medications, be aware of possible side effects like dizziness, fatigue or swelling Diet reduce salt intake and avoid processed foods, canned soups, fast food. Eat more fruits, vegetables and whole grains Fluids stay well hydrated but avoid excessive caffeine and alcohol Exercise engage in moderate exercise for at least 30 minutes most of the days. Consulted Dr. Before starting intense exercise Stress management practice relaxation techniques like deep breathing, meditation or yoga Avoid smoking and alcohol consumption Continue monitoring your blood pressure at home regularly and keep a log, watch for symptoms like severe headache, vision changes, chest pain or shortness of breath and seek emergency care if any of those occur Home Medications: Reported Medications Montelukast Sodium (Singulair) 10 Mg Tablet, 1 TAB PO DAILY for 30 Days, #30 TAB 0 Refills 325 Losartan Potassium (Losartan Potassium) 50 Mg Tablet, 1 TAB PO BID for 30 Days, #30 TAB 0 Refills 25 Clonazepam (Clonazepam) 0.5 Mg Tab.rapdis, 1 TAB PO HS for 30 Days, #30 TAB 0 Refills 3425 Hydrochlorothiazide (Hydrochlorothiazide) 12.5 Mg Tablet, 1 TAB PO BID for 30 Days, #30 TAB 0 Refills 325 Apixaban (Eliquis) 5 Mg Tablet, 1 TAB PO BID for 30 Days, #60 TAB 0 Refills 25 Continued Medications: Apixaban (Eliquis) 5 Mg Tablet 1 TAB PO BID for 30 Days, #60 TAB 0 Refills Clonazepam (Clonazepam) 0.5 Mg Tab.rapdis 1 TAB PO HS for 30 Days, #30 TAB 0 Refills Hydrochlorothiazide (Hydrochlorothiazide) 12.5 Mg Tablet 1 TAB PO BID for 30 Days, #30 TAB 0 Refills Losartan Potassium (Losartan Potassium) 50 Mg Tablet 1 TAB PO BID for 30 Days, #30 TAB 0 Refills Montelukast Sodium (Singulair) 10 Mg Tablet 1 TAB PO DAILY for 30 Days, #30 TAB 0 Refills Time spent arranging discharge: 1-30 minutes ATTESTATION BY PHYSICIAN I have seen and examined the patient. I reviewed the documentation, medical decision making, and treatment plan as noted by the resident provider above. I agree with the findings and plan of care. Jr Connor MD, KEERTI K MD Jul 21, 2024 11:05
[2024-07-21 12:00] VITALS: BP 135/73; PULSE 73; RESP 18; TEMP 97.6
[2024-07-21] MEDS: MAGNESIUM 2GM PREMIX 50ML 50 ML IV ONE ×2 (12:04→14:05)
== END 2024-07-21 17:55 | disposition home or self-care (01) | DRG 304 ==
LOC: EDH 13:41 → EDHIP 18:54 → 3AH 07-20 22:41
PROVIDERS: ADMIT Internal Medicine; ATTEND Internal Medicine
DX: I16.0 Hypertensive urgency (principal); J18.9 Pneumonia, unspecified organism; I48.91 Unspecified atrial fibrillation; E87.6 Hypokalemia; J45.909 Unspecified asthma, uncomplicated; G47.00 Insomnia, unspecified; Z96.652 Presence of left artificial knee joint; H53.8 Other visual disturbances; G25.81 Restless legs syndrome; Z51.5 Encounter for palliative care; I10 Essential (primary) hypertension; R82.71 Bacteriuria; Z20.822 Contact with and (suspected) exposure to COVID-19; Z90.710 Acquired absence of both cervix and uterus; Z90.49 Acquired absence of other specified parts of digestive tract; Z79.899 Other long term (current) drug therapy; Z79.01 Long term (current) use of anticoagulants
CPT/HCPCS: 36415; 70450; 71045; 80048; 81001; 83735; 84100; 84484; 85025; 87071; 87086; 87205; 87635; 87804; 93005; 94640; 94664; 96374; 99285; G0378; J0360; J0696; J1650; J3475; J3490

== ENCOUNTER → 2024-08-05 | Outpatient (CLI) | payer MEDICARE ==
[~2024-08-05] MED LIST: APIX5TAB PO; CLON0.5T23 PO; HYDR12.54 PO; LOSA50TA64 PO; MONT-47 PO
[2024-08-05 12:30] LABS: ALBUMIN 3.8 g/dL (3.5-5.0); BILIRUBIN,TOTAL 0.7 mg/dL (0.2-1.0); CREATININE 0.7 mg/dL (0.5-1.0); POTASSIUM 3.7 mmol/L (3.5-5.1)
[2024-08-05 13:11] LABS: HEMOGLOBIN A1C 5.5 % (4.0-6.0)
== END | disposition home or self-care (01) ==
LOC: LAB 08:04
PROVIDERS: ATTEND Student in an Organized Health Care Education/Training Program
DX: I11.0 Hypertensive heart disease with heart failure (principal); I50.32 Chronic diastolic (congestive) heart failure; E78.5 Hyperlipidemia, unspecified; I48.0 Paroxysmal atrial fibrillation; J45.909 Unspecified asthma, uncomplicated; R60.0 Localized edema; Z79.899 Other long term (current) drug therapy
CPT/HCPCS: 36415; 80053; 80061; 83036